=== PATIENT | female | born 1930 | race Caucasian/White ===

== ENCOUNTER 2019-09-26 02:50 | Emergency (ER) | payer OTHER ==
[~2019-09-26] VITALS: Ht 157.5 cm; Wt 63.5 kg
[2019-09-26 05:22] LABS: Chloride 109 mmol/L (98-107); Potassium 4.6 mmol/L (3.5-5.1); Sodium 140 mmol/L (136-145)
[2019-09-26 05:24] LABS: Basophils # (auto) 0 uL; Basophils % (auto) 0.3 % (0.0-2.0); Eosinophils # (auto) 0 uL; Eosinophils % (auto) 0.6 % (0.0-7.0); Hematocrit 29.5 % (36.0-46.0); Hemoglobin 9.8 g/dL (12.2-16.2); Lymphocytes # (auto) 0.6 uL; Lymphocytes % (auto) 8.4 % (10.0-50.0); Mean Corpuscular Hemoglobin 31.4 pg (28.0-32.0); Mean Corpuscular Hgb Conc. 33.3 g/dL (32.0-36.0); Mean Corpuscular Volume 94.2 fL (80.0-100.0); Monocytes # (auto) 0.5 uL; Monocytes % (auto) 6.3 % (0.0-12.0); Neutrophils % (auto) 84.4 % (37.0-80.0); Nucleated Red Blood Cells % 1.8 %; Platelet Count (auto) 106 10^3/uL (140-450); Red Blood Cells 3.13 10^6/uL (4.0-5.20); Red Cell Distribution Width 16.6 % (11.8-14.3); White Blood Cell 7.1 10^3/uL (4.4-10.8)
[2019-09-26 05:31] LABS: Alanine Aminotransferase 41 U/L (13-56); Alkaline Phosphatase 131 U/L (45-117); Anion Gap 7 (5-15); Aspartate Aminotransferase 33 U/L (15-37); BUN/Creatinine Ratio 37.2; Bilirubin, Total 0.6 mg/dL (0.2-1.0); Blood Urea Nitrogen 67 mg/dL (7-18); Carbon Dioxide 24 mmol/L (21-32); GFR African American 34 mL/min; GFR Non-African American 28 mL/min; Glucose 92 mg/dL (74-106); INR 1.01 (0.9-1.15); Partial Thromboplastin Time 31.4 sec (23.64-32.05); Total Protein 6.7 g/dL (6.4-8.2)
[2019-09-26 06:17] LABS: Urine Specific Gravity 1.013 (1.001-1.035)
[2019-09-26 06:18] LABS: Urine Bacteria MODERATE /hpf (None Seen); Urine Blood 1+ /uL (Negative); Urine Mucus FEW (None Seen)
[2019-09-26] MEDS ORDERED: cefTRIAXone 1GM/50ML D5W 50 ML IV ONE (07:00)
[2019-09-26] MEDS ORDERED: SODIUM CHLORIDE 0.9% 1,900 ML IV ONE (07:30)
[2019-09-26 09:28] VITALS: BP 125/80
[2019-09-26] MEDS ORDERED: LORazepam 2MG/ML-1ML VIAL IV ONE (09:45)
== END 2019-09-26 09:41 | disposition short-term general hospital (02) ==
LOC: ER 02:50 → EDBD 02:50 → ER 09:41
DX: R41.82 Altered mental status, unspecified (principal); G93.41 Metabolic encephalopathy; N39.0 Urinary tract infection, site not specified; J90 Pleural effusion, not elsewhere classified; R79.1 Abnormal coagulation profile; E78.5 Hyperlipidemia, unspecified; I10 Essential (primary) hypertension; Z90.710 Acquired absence of both cervix and uterus
CPT/HCPCS: 36415; 51702; 70450; 71045; 72125; 80053; 81001; 83605; 83880; 84484; 85025; 85379; 85610; 85730; 87040; 87086; 93005; 96365; 99285; J0696; J2060